=== PATIENT | female | born 1970 | race Caucasian/White ===

== ENCOUNTER 2016-10-10 22:29 | Emergency (ER) | payer OTHER ==
[~2016-10-10] VITALS: Ht 152.4 cm; Wt 40.9 kg
[~2016-10-10 22:29] MED LIST: HYDROcodone-APAP 5-325 PO; IBUP-1827 PO; NYST1000 PO; SENN-133 PO; SULF1TAB35 PO
[2016-10-10 22:38] VITALS: BP 109/73; PULSE 98; RESP 15; O2SAT 100
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
[2016-10-11] MEDS ORDERED: Fluconazole Inj 400 MG in IV Premix 1 EACH IV SCH (00:55)
[2016-10-11] MEDS ORDERED: Fluconazole Inj 400 MG in IV Premix 1 EACH IV ONE (00:57)
[2016-10-11] MEDS ORDERED: Nystatin 100,000 Unit/mL 5 mL Suspension PO ONE (02:20)
[2016-10-11 02:29] VITALS: BP 122/79; PULSE 104; RESP 16; O2SAT 100
== END 2016-10-11 02:09 | disposition home or self-care (01) ==
LOC: SED 22:29
DX: B37.0 Candidal stomatitis (principal); F17.200 Nicotine dependence, unspecified, uncomplicated; Z88.0 Allergy status to penicillin; Z87.01 Personal history of pneumonia (recurrent)

== ENCOUNTER 2016-10-18 06:23 | Emergency (ER) | payer OTHER ==
[~2016-10-18] VITALS: Ht 152.4 cm; Wt 40.9 kg
[2016-10-18 06:27] VITALS: BP 114/66; PULSE 87; RESP 22; O2SAT 100
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
[2016-10-18] MEDS ORDERED: 0.9% Sodium Chloride 1,000 ML IV ONE (06:42)
[2016-10-18] MEDS ORDERED: Lidocaine 1%-Epi 1:100,000 50 mL Inj SUBQ ONE (06:45)
[2016-10-18] MEDS ORDERED: Lidocaine-Epi-Tetracaine Solution 3 mL Syringe TOPICAL ONE (07:05)
[2016-10-18 07:08] LABS: BASOPHILS % (AUTO) 0.2 % (0-3); MONOCYTES % (AUTO) 14.4 % (4-12); Mean Corpuscular Hemoglobin 29.2 pg (27.0-35.0); Mean Corpuscular Volume 87.9 fL (81-100); NEUTROPHILS % (AUTO) 65.6 % (40-74); Platelet Count 279 bil/L (150-400)
[2016-10-18 07:33] LABS: Magnesium 1.9 mg/dL (1.6-2.6)
--- NOTE | 2016-10-18 07:46 | DRSVH ---
PROCEDURE: X-RAY CHEST, TWO VIEWS ([id number]) INDICATIONS: cough, HIV (possible AIDS), noncompliant with meds TECHNIQUE: 2 views of the chest were acquired. COMPARISON: [facility], CR, XR CHEST 2VW, 03/29/2015, 12:23. FINDINGS: Surgical changes and devices: None. Lungs and pleura: No pleural effusions or pneumothorax. Lungs are clear. Mediastinum: Mediastinal contours are normal. Heart size is normal. Bones and chest wall: No suspicious bony abnormalities. Soft tissues appear unremarkable. IMPRESSION: No radiographic evidence of acute cardiopulmonary pathology. Dictated by: Kodak Moon M.D. on 10/18/2016 at 7:44 Approved by: Kodak Moon M.D. on 10/18/2016 at 7:45
[2016-10-18 08:02] LABS: APPEARANCE,URINE CLOUDY (CLEAR,HAZY); COLOR,URINE STRAW (YELLOW); OCCULT BLOOD,URINE TRACE (NEGATIVE); PH,URINE 7.5 (5.0-8.0); UROBILINOGEN,URINE NORMAL (NORMAL)
[2016-10-18] MEDS ORDERED: cefTRIAXone Inj 2,000 MG in Dextrose 5% Minibag Plus 50 ML IV ONE (08:50)
[2016-10-18] MEDS ORDERED: Trimethoprim-Sulfa 160 mg-800 mg Tablet PO ONE (10:05)
[2016-10-18] MEDS ORDERED: SULF1TAB35 PO (10:07)
[2016-10-18] MEDS ORDERED: cefTRIAXone Inj 1,000 MG, Lidocaine PF 1% Inj 2.1 ML in Syringe 0 EACH IM ONE (10:20)
[2016-10-18 11:11] VITALS: BP 121/88; PULSE 82; RESP 18; O2SAT 100
--- NOTE | 2016-10-18 11:59 | NUR ---
ED FAILURE ANALYSIS TECHNICIAN Note Per MD request, FAILURE ANALYSIS TECHNICIAN arranged Medicaid transport to pick pt up in front of hospital main entrance at 1230 today. FAILURE ANALYSIS TECHNICIAN to contact ED UA with final pick pulling machine operator time once confirmed with [facility]. Pt requested to be dropped off at [facility] for a meal. VALERIE Granados
== END 2016-10-18 11:27 | disposition home or self-care (01) ==
LOC: SED 06:23
DX: L02.11 Cutaneous abscess of neck (principal); L02.512 Cutaneous abscess of left hand; N39.0 Urinary tract infection, site not specified; B20 Human immunodeficiency virus [HIV] disease; F15.10 Other stimulant abuse, uncomplicated; F17.200 Nicotine dependence, unspecified, uncomplicated; Z91.19 Patient's noncompliance with other medical treatment and regimen; Z86.19 Personal history of other infectious and parasitic diseases; Z59.0 Homelessness; Z88.0 Allergy status to penicillin
CPT/HCPCS: 10061; 36415; 71020; 80053; 81000; 83605; 83735; 85025; 86361; 87040; 87086; 87088; 87186; 96360; 96372; 99285; J0696; J7030

== ENCOUNTER 2016-11-01 20:08 | Emergency (ER) | payer OTHER ==
[~2016-11-01] VITALS: Ht 152.4 cm; Wt 42.3 kg
[2016-11-01 20:16] VITALS: BP 124/53; PULSE 128; RESP 20; O2SAT 95
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
[2016-11-01] MEDS ORDERED: 0.9% Sodium Chloride 1,000 ML IV ONE (21:48)
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
[2016-11-01 23:07] LABS: BASOPHILS % (AUTO) 0 % (0-3); EOSINOPHILS % (AUTO) 0.1 % (0-5); MONOCYTES % (AUTO) 10.9 % (4-12); Mean Corpuscular Hemoglobin 28.7 pg (27.0-35.0); Mean Corpuscular Volume 86.8 fL (81-100); NEUTROPHILS % (AUTO) 81.3 % (40-74); Platelet Count 251 bil/L (150-400)
[2016-11-01 23:35] LABS: Lipase 103 U/L (13-60)
[2016-11-02 01:01] VITALS: BP 93/58; PULSE 109; O2SAT 98
[2016-11-02 01:03] LABS: APPEARANCE,URINE HAZY (CLEAR,HAZY); COLOR,URINE YELLOW (YELLOW); OCCULT BLOOD,URINE SMALL (NEGATIVE); PH,URINE 6.5 (5.0-8.0); UROBILINOGEN,URINE NORMAL (NORMAL)
[2016-11-02] MEDS ORDERED: cefTRIAXone Inj 2,000 MG in Dextrose 5% Minibag Plus 50 ML IV ONE (02:05)
[2016-11-02] MEDS ORDERED: IBUP-1827 PO (02:51)
[2016-11-02 06:24] VITALS: BP 100/62; PULSE 117; RESP 20; O2SAT 95
[2016-11-02] MEDS ORDERED: CLOT10TR BUCCAL (06:28)
[2016-11-02 06:42] VITALS: BP 100/62; PULSE 117; RESP 20; O2SAT 95
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
== END 2016-11-02 06:44 | disposition home or self-care (01) ==
LOC: SED 20:08
DX: S22.20XA Unspecified fracture of sternum, initial encounter for closed fracture (principal); Y04.0XXA Assault by unarmed brawl or fight, initial encounter; Y07.03 Male partner, perpetrator of maltreatment and neglect; Y93.9 Activity, unspecified; Y92.9 Unspecified place or not applicable; Y99.8 Other external cause status; F17.200 Nicotine dependence, unspecified, uncomplicated; F15.10 Other stimulant abuse, uncomplicated; B20 Human immunodeficiency virus [HIV] disease; Z88.0 Allergy status to penicillin
CPT/HCPCS: 36415; 70450; 71010; 71260; 72125; 74177; 80053; 81000; 81025; 83690; 85025; 87086; 87088; 87186; 93005; 96361; 96365; 99285; G0480; J0696; J7030; Q9967